=== PATIENT | female | born 1945 | race Caucasian/White ===

== ENCOUNTER 2023-10-09 09:40 | Emergency (ER) | payer MEDICARE, OTHER, SELFPAY ==
[2023-10-09 09:46] VITALS: BP 177/104
--- NOTE | 2023-10-09 10:15 | ED.GENMED ---
History of Present Illness
General
Chief Complaint: Chest Pain
Source: patient and spouse
Time Seen by Provider: 10/09/23 10:00
Travel History
Have you had any contact with someone who has COVID-19?: No
Do you have any symptoms of coronavirus? Fever > 100 degrees, chills, cough, shortness of breath, sore throat, loss of taste or smell, muscle aches, or headache?: No
History of Present Illness
History of Present Illness:
78-year-old female with past medical history of hypothyroidism and unspecified palpitations presenting to the emergency department for evaluation of worsening palpitations this morning, improved upon arrival to the emergency department, without
taking any medications. Patient has been seen by her blow pit operator for this and notes that she had an appointment about 3 months ago. Notes that she did have a Holter monitor at 1 point but is unable to remember as to when and states that there
were not any abnormalities found. Patient does note that her TSH was a little bit low on lab work done a few months ago and her primary care decreased her Synthroid 1 day of the but patient reports she is does not feel any different since
decreasing this dose. No fevers, chills, rigors, nausea, vomiting, bowel changes or urinary symptoms, chest pain, diaphoresis, exertional dyspnea, cough or any other concerns. Patient states no other medications were given for palpitations by
blow pit operator or primary care provider.
Past History
Past History
ED Past Medical History: Hypothyroidism
ED Past Surgical History: Orthopedic
Social History
Tobacco: Non-smoker
Alcohol: Occasional
Drug: None
Personal:
Living: with family
Review of Systems
Review of Systems
All Other Systems: ROS reviewed and negative except as documented in HPI and ROS
Phy Exam
Physical Exam
Physical Exam:
GENERAL: Alert , in no apparent distress
EYE: conjunctiva clear
NECK: Supple, no significant adenopathy.
ENT: o/p clr, mmm.
CARDIAC: Regular rate and rhythm, no murmur
LUNGS: Clear breath sounds bilaterally, no acute respiratory distress, no wheezes/rales/rhonchi
Abdomen: Soft, nontender, nondistended
NEUROLOGICAL: Alert and oriented
SKIN: Warm and dry, skin intact.
MUSCULOSKELETAL: well perfused. No edema
PSYCH: Normal and appropriate interaction.
Scores
Heart Failure Risk
Heart Failure Risk Score: Not Applicable
Heart Score for Chest Pain Patients
STEMI patient?: Not applicable
Withdrawal Assessment of Alcohol
Withdrawal Assessment Completed?: Not applicable
Course
Orders/Labs/Results
Orders:
Orders
10/09/23 09:51
Electrocardiogram (*1) Urgent
Reason for Study: Palpitations
EKG- Treatment ONCE
10/09/23 10:40
Complete Blood Count/With Diff Urgent
Comprehensive Metabolic Panel Urgent
Magnesium Urgent
TSH Urgent
Troponin I Urgent
Abnormal Lab Results
10/09/23
10:40
RBC 3.73 L 10^6/uL
(4.20-5.40)
Hct 35.9 L %
(37.0-47.0)
MCH 32.2 H pg
(27.0-31.0)
Monocytes % 9.6 H %
(1.7-9.3)
BUN 19 H mg/dl
(7-17)
Glucose 112 H mg/dl
(70-99)
10/09/23 10:40
10/09/23 10:40
Vital Signs
Initial and Last Documented VS:
Initial Vital Signs
Temp Pulse Resp BP Pulse Ox
98.9 F 78 18 177/104 99
10/09/23 09:46 10/09/23 09:46 10/09/23 09:46 10/09/23 09:46 10/09/23 09:46
Last Documented Vital Signs
Temp Pulse Resp BP Pulse Ox
98.9 F 65 11 144/76 96
10/09/23 09:46 10/09/23 12:28 10/09/23 12:28 10/09/23 12:28 10/09/23 11:00
MDM/Problems Addressed
Differential Diagnosis Includes:
Cardiac dysrhythmia, valvular dysfunction, electrolyte disturbance, anxiety, unspecified palpitations
MDM/Problems Addressed:
78-year-old female presenting to the emergency department for evaluation of palpitations. This been ongoing for many months but today seem to be a little bit worse. On arrival to the emergency department patient is in a normal sinus rhythm with no
ectopy or ischemic changes on telemetry or EKG. She does report symptoms seem a little bit improved presently. No signs of illness. Will check labs. Anticipate need for continued outpatient follow-up with primary care as well as cardiology.
Patient may benefit from Holter monitor or loop recorder. She may also benefit from a beta-cherrie for symptomatic relief.
*Pulse Oximetry
Patient hypoxic: no
*EKG
Interpreted by ED Provider?: Yes
Comparison EKG: no changes
Heart Rate: 72
Rate: normal
Rhythm: sinus
[place]: normal axis
Ischemia: no ischemia
*Ammunition And Explosives Handler Interpretation
Rate: normal
Rhythm: sinus
*Critical Care Note
Total Time (30-74mins, 75-104mins- exclusive of procedures): Not Applicable
Patient Management
Escalation/DeEscalation of care consider admission/obs:
Patient remains hemodynamically stable. Occasional PVCs on monitor and storage bin tender could be a potential cause for symptoms. Patient will be following up with her primary care provider as well as her outpatient blow pit operator. Aware of return precautions.
ED Attending Note
-
Portions of this chart may have been created with voice recognition software.� Occasional wrong word or��sound alike� substitutions may have occurred due to the inherent limitations of voice recognition software.
Discharge Plan
Departure
Patient Disposition: Home (Routine Discharge)
Date of Disposition: 10/09/23
Time of Disposition: 12:21
Patient with high blood pressure during this ER visit?: Yes
Discharge Problem:
Palpitations, Elevated blood pressure reading
Instructions: Palpitations
Referrals:
Tia Smiley MD [Family Provider] -
Interventions
Interventions:
*Risk Screen - Suicide Last Done: 10/09/23 10:42
*General Assessment Last Done: 10/09/23 10:42
*Neglect/Abuse Screening Last Done: 10/09/23 10:42
ED- Fall Risk Assessment Last Done: 10/09/23 10:42
*ED COVID-19 Vaccine History Last Done: 10/09/23 09:52
*Nursing Disposition Last Done: 10/09/23 12:52
ED- Cardiac Assessment Last Done: 10/09/23 10:42
Discharge Date and Time
Discharge Date/Time: 10/09/23 12:40
Print Language: MALAY
[2023-10-09 10:42] VITALS: BMI 34.3
[2023-10-09 10:43] VITALS: BP 163/83
[2023-10-09 10:56] LABS: % Basophils 0.6 % (0-2); % Eosinophils 2.1 % (0-6); % Immature Granulocytes 0.4 % (0-0.5); % Lymphocytes 26.1 % (20.5-51.1); % Monocytes 9.6 % (1.7-9.3); % Neutrophils 61.2 % (42.2-75.2); Absolute Eosinophils 0.1 10^3/uL (0-0.7); Absolute Lymphocytes 1.4 10^3/uL (1.2-3.4); Absolute Monocytes 0.5 10^3/uL (0.1-0.6); Absolute Neutrophils 3.3 10^3/uL (1.4-6.5); Hematocrit 35.9 % (37.0-47.0); Mean Corp Hgb Conc. 33.4 g/dL (33.0-37.0); Mean Corpuscular Hgb 32.2 pg (27.0-31.0); Mean Corpuscular Volume 96.2 fL (81.0-99.0); Mean Platelet Volume 10.3 fL (7.4-10.4); Nucleated Red Blood Cells % 0 %; Platelet Count 222 10^3/uL (130-400); Red Blood Cell Count 3.73 10^6/uL (4.20-5.40); Red Cell Dist. Width 12.2 % (11.5-14.5); White Blood Cell Count 5.3 10^3/uL (4.8-10.8)
[2023-10-09 11:00] VITALS: BP 173/82
[2023-10-09 11:16] LABS: ALT (SGPT) 22 U/L (0-35); AST (SGOT) 30 U/L (14-36); Albumin 3.9 g/dl (3.5-5.0); Alkaline Phosphatase 83 U/L (38-126); Blood Urea Nitrogen 19 mg/dl (7-17); Calcium 10.2 mg/dl (8.4-10.2); Carbon Dioxide 27 mmol/L (22-30); Chloride 105 mmol/L (98-107); Estimated Creatinine Clearance 83 ml/min; Glucose 112 mg/dl (70-99); Magnesium 1.9 mg/dl (1.6-2.3); Potassium 4.2 mmol/L (3.5-5.1); Sodium 138 mmol/L (135-145); Total Bilirubin 0.4 mg/dl (0.2-1.3); Total Protein 6.6 g/dl (6.3-8.2); eGFR > 60.00
[2023-10-09 11:27] LABS: Troponin I < 0.012 ng/ml
[2023-10-09 12:00] VITALS: BP 144/63
[2023-10-09 12:03] LABS: TSH 2.72 uIU/ml (0.47-4.68)
[2023-10-09 12:28] VITALS: BP 144/76
== END 2023-10-09 12:40 | disposition home or self-care (01) ==
LOC: EMR 09:40
PROVIDERS: Physician Assistant Medical; EMERGENCY PHYSICIAN Emergency Medicine; FAMILY PHYSICIAN Internal Medicine
DX: R00.2 Palpitations (principal); R03.0 Elevated blood-pressure reading, without diagnosis of hypertension; E03.9 Hypothyroidism, unspecified
CPT/HCPCS: 99284; 80053; 83735; 84443; 84484; 85025; 93005